=== PATIENT | male | born 1990 | race Caucasian/White ===

== ENCOUNTER → 2017-04-28 | Outpatient (REF) | payer MEDICAID ==
[~2017-04-28] MED LIST: ACET-2043 PO; BUPR-124 PO; CALC215T2 PO; CETI10CA8 PO; CHOL200021 PO; DOCU-194 PO; FLUO40CA76 PO; FLUT15.88; GUAI-244 PO; HYDR50CA48 PO; IBUP800T37 PO; LOPE2CAP88 PO; MELA5TAB6 PO; METH-321 PO; MONT10TA4 PO; OLO2ODPT OU; PAL9PT PO; POLY17PO21 PO; SENN-72 PO
[2017-04-28 19:42] LABS: PLATELET COUNT, AUTOMATED 358 K/uL (150-450)
== END ==
PROVIDERS: ATTEND Nurse Practitioner Family
DX: R10.9 Unspecified abdominal pain (principal)
CPT/HCPCS: 82040; 82150; 82247; 82310; 82374; 82435; 82565; 82947; 83690; 84075; 84132; 84155; 84295; 84450; 84460; 84520; 85025

== ENCOUNTER → 2017-05-01 | Outpatient (CLI) | payer MEDICAID ==
--- NOTE | 2017-05-01 17:33 | RADIOLOGY IMAGING REPORT ---
FACILITY: PATIENT NAME: Galileo Michael : 1990 MR: [id number] V: [id number] EXAM DATE: ORDERING PHYSICIAN: SIDRA LOVE TECHNOLOGIST: Location: [facility] Patient: Galileo Michael : 1990 Visit/Account:[id number] Date of Sevice: 05/01/2017 Ultrasound abdomen limited: History: Right upper quadrant pain for one month COMPARISON STUDIES: None FINDINGS: Gallbladder: Multiple echogenic foci with posterior shadowing are present within the gallbladder cons istent with stones. Gallbladder wall is minimally thickened. There is no pericholecystic fluid. No sonographic Christine sign is present. Liver: Liver is normal. There is no mass or intrahepatic ductal dilatation. Portal vein is patent. Surface of the liver is smooth Common duct: normal 3 mm. Pancreas: L the pancreas is grossly normal, body and tail are obscured by overlying bowel gas. Right kidney: 12.3 x 5.8 x 4.5 cm. Cortical thickness and echogenicity is normal. Upper abdominal aorta and IVC: Patent Ascites: none IMPRESSION: 1. Cholelithiasis without specific evidence of cholecystitis. 2. Remainder of the examination is normal. Report Dictated By: Cary Mims MD at 05/01/2017 5:27 PM Report E-Signed By: Cary Mims MD at 05/01/2017 5:30 PM WSN:[id number]
== END ==
LOC: US 02:36
PROVIDERS: ATTEND Nurse Practitioner Family
DX: K80.20 Calculus of gallbladder without cholecystitis without obstruction (principal)
CPT/HCPCS: 76705

== ENCOUNTER → 2017-05-12 | Outpatient (CLI) | payer MEDICAID ==
[~2017-05-12] MED LIST changes: +IOPAMIDOL 76% 75 ML INFUS BTL 75 ML ONE
[2017-05-12 11:17] LABS: PLATELET COUNT, AUTOMATED 425 K/uL (150-450)
--- NOTE | 2017-05-12 15:45 | RADIOLOGY IMAGING REPORT ---
FACILITY: [facility] PATIENT NAME: Galileo Michael : 1990 MR: [id number] V: [id number] EXAM DATE: ORDERING PHYSICIAN: SIDRA LOVE TECHNOLOGIST: Location: [facility] Patient: Galileo Michael : 1990 Visit/Account:[id number] Date of Sevice: 05/12/2017 ABDOMEN/PELVIS WITH CONTRAST HISTORY: Epigastric pain TECHNIQUE: Following administration of IV contrast contiguous axial images acquired through the abdom en/pelvis. Coronal and sagittal reformatting also performed. Dose Lowering Technique One of the following dose optimization techniques was utilized in the performance of this exam: Autom ated exposure control; adjustment of the mA and/or kV according to the patient's size; or use of an i terative reconstruction technique. Specific details can be referenced in the facility's radiology C T exam operational policy. CONTRAST: 75 mL Isovue-370 COMPARISON: Gallbladder ultrasound May 01, 2017 FINDINGS: Visualized lung bases: Negative. Hepatobiliary: Negative. Spleen: Borderline enlarged Adrenals: Negative. Pancreas: Negative. Kidneys ureters or bladder: There is no evidence of hydronephrosis or hydroureter. There are several calcifications the pelvis likely phleboliths due to the lack of ureteral dilatation. the bladder is moderately thickened although may in part be related to underdistention with urine Genitalia: Negative. GI: Negative. Vessels/spaces/nodes: There is several minimally prominent mesenteric lymph nodes. A medical field representative lymph node measures 9 x 7 mm. . Bones/soft tissues: Incidentally noted is bilateral sacralization of L5 Additional findings: None pertinent. IMPRESSION: Spleen is borderline enlarged There are several calcifications in the pelvis likely representing phlebolith due to the lack of hydr onephrosis or hydroureter. The bladder is moderately thickened although may in part be related to un derdistention with urine There are several minimally prominent mesenteric lymph nodes. These are likely nonspecific although given the clinical history mesenteric inflammation not totally excluded. Of note there is no evidenc e of bowel wall thickening or bowel obstruction Report Dictated By: Anusha Crowder MD at 05/12/2017 3:31 PM Report E-Signed By: Anusha Crowder MD at 05/12/2017 3:41 PM WSN:[id number]
== END ==
LOC: CT 01:16
PROVIDERS: ATTEND Nurse Practitioner Family
DX: R59.0 Localized enlarged lymph nodes (principal); R93.41 Abnormal radiologic findings on diagnostic imaging of renal pelvis, ureter, or bladder
CPT/HCPCS: 36415; 74177; 82150; 83690; 85025; Q9967; 82040; 82247; 82310; 82374; 82435; 82565; 82947; 84075; 84132; 84155; 84295; 84450; 84460; 84520

== ENCOUNTER → 2018-04-03 | Outpatient (CLI) | payer MEDICAID ==
[~2018-04-03] MED LIST changes: -DOCU-194 PO; +DOCU100C56 PO; -IOPAMIDOL 76% 75 ML INFUS BTL 75 ML ONE; +POLY17PO11 PO; -POLY17PO21 PO
== END ==
LOC: RESP 19:57
PROVIDERS: ATTEND Nurse Practitioner Family
DX: Z02.9 Encounter for administrative examinations, unspecified (principal)

== ENCOUNTER → 2018-04-13 | Outpatient (CLI) | payer MEDICAID ==
[~2018-04-13] MED LIST changes: -SENN-72 PO; +SENN1TAB80 PO
== END ==
LOC: LAB 15:48
PROVIDERS: ATTEND Nurse Practitioner Family
DX: D72.828 Other elevated white blood cell count (principal); D72.829 Elevated white blood cell count, unspecified; R79.89 Other specified abnormal findings of blood chemistry
CPT/HCPCS: 36415; 88184; 88185; 88189

== ENCOUNTER 2018-05-06 13:00 | Outpatient (RCR) | payer MEDICAID ==
[~2018-05-06] VITALS: Ht 191.5 cm; Wt 112.2 kg
[2018-05-06 13:01] VITALS: BP 127/81
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
== END 2018-08-03 ==
LOC: ONC 13:00
PROVIDERS: ATTEND Internal Medicine Hematology
DX: D72.820 Lymphocytosis (symptomatic) (principal); D72.829 Elevated white blood cell count, unspecified; F90.9 Attention-deficit hyperactivity disorder, unspecified type; F95.2 Tourette's disorder; Z79.899 Other long term (current) drug therapy; R53.1 Weakness; R53.83 Other fatigue
CPT/HCPCS: 88184; 88185; 88189; G0463; 99212